=== PATIENT | male | born 1960 | race Caucasian/White ===

== ENCOUNTER → 2021-04-17 11:09 | Outpatient (REF) | payer OTHER, SELFPAY | LOC: ANHLAB 11:09 | PROVIDERS: Visit Provider Nurse Practitioner | DX: D49.2 Neoplasm of unspecified behavior of bone, soft tissue, and skin (principal) | CPT/HCPCS: 88305 ==

== ENCOUNTER → 2021-04-29 16:03 | Outpatient (REF) | payer OTHER, SELFPAY | LOC: ANHLAB 16:03 | PROVIDERS: Visit Provider Nurse Practitioner | DX: L98.9 Disorder of the skin and subcutaneous tissue, unspecified (principal) | CPT/HCPCS: 88305 ==

== ENCOUNTER 2024-04-08 09:17 | Emergency (ER) | payer MEDICARE, SELFPAY ==
[2024-04-08 09:32] VITALS: BP 146/62; PULSE 84; RESP 20; TEMP 36.6; O2SAT 98
--- NOTE | 2024-04-08 09:34 | ED.GENADULT ---
HPI - General Adult General Chief complaint: Skin/Abscess/Foreign Body Stated complaint: stitch swelling and pain Time Seen by Provider: 04/08/24 09:34 Source: patient Mode of arrival: ambulatory Limitations: no limitations History of Present Illness HPI narrative: 63-year-old male patient presents to the [facility] with request for suture removal of the left knee. Patient states this past Wednesday he fell off a ladder and lacerated his left knee. Patient states that they told him that a small artery was nicked and they put in an ex ditch. Patient states the area is sore feels like there is a lot of pressure to the area. Patient states they did update his tetanus shot but did not put him on any antibiotics. Related Data Home Medications Medication Instructions Recorded Confirmed aspirin 81 mg tablet,delayed 81 mg PO DAILY 06/22/19 04/08/24 release glimepiride 4 mg tablet 4 mg PO BID 06/22/19 04/08/24 insulin detemir U-100 100 unit/mL 100 unit subcut DAILY 06/22/19 04/08/24 (3 mL) subcutaneous pen (Levemir FlexTouch U-100 Insulin) losartan 100 1 tablet PO DAILY 06/22/19 04/08/24 mg-hydrochlorothiazide 25 mg tablet (Hyzaar) atorvastatin 40 mg tablet 40 mg PO DAILY 04/08/24 04/08/24 furosemide 20 mg tablet 20 mg PO DAILY 04/08/24 04/08/24 omeprazole 40 mg capsule,delayed 40 mg PO DAILY 04/08/24 04/08/24 release tirzepatide 5 mg/0.5 mL 5 mg subcut WEEKLY 04/08/24 04/08/24 subcutaneous pen injector (Mounjaro) Allergies Allergy/AdvReac Type Severity Reaction Status Date / Time No Known Allergies Allergy Verified 04/08/24 09:29 Review of Systems Review of Systems: CONSTITUTIONAL: Denies fever, chills, or sweats. EYES: Denies visual changes, redness, or discharge. ENT: Denies rhinorrhea, congestion, sore throat, or otalgia. CARDIOVASCULAR: Denies chest pain, palpitations, or edema. RESPIRATORY: Denies cough or dyspnea. GASTROINTESTINAL: Denies abdominal pain, nausea, vomiting, or diarrhea. GENITOURINARY: Denies dysuria or hematuria. SKIN: Denies rash or itching. Positive sutures to left knee MUSCULOSKELETAL: Denies back pain, joint pain, or myalgia. NEUROLOGIC: Denies headache, numbness, or weakness. PSYCHIATRIC: Denies anxiety or depression. [facility] Past Medical History Medical History (Updated 04/08/24 @ 09:54 by MARGE Escobedo) Diabetes Hypercholesteremia Hypertension Social History Social History Tobacco type: cigarettes Alcohol intake: current Alcohol use details: socially Exam Narrative: GENERAL: Well-appearing, well-nourished, and in no acute distress. HEAD: Normocephalic, atraumatic. EYES: PERRLA and EOMI. ENT: Nares clear, no rhinorrhea or epistaxis. Mucous membranes moist. NECK: Supple. No lymphadenopathy CHEST: Clear to auscultation. No respiratory distress. HEART: Regular rate and rhythm. No murmur heard. Normal peripheral pulses. ABDOMEN: Soft, nontender, nondistended, normal active bowel sounds. EXTREMITIES: Normal range of motion. No edema. SKIN: Warm, dry, no rash. patient has what appears to be 3-4 stitches to the left leg distal to the knee. There is some surrounding bruising but no warmth or erythema. There is some swelling present most likely hematoma from the bleeding in the ER a week ago. NEURO: No focal deficits. Alert and oriented x3. Course Course Level of Care: Express Care Visit Vital Signs Vital signs: Vital Signs Temperature 36.6 C 04/08/24 09:32 Pulse Rate 84 04/08/24 09:32 Respiratory Rate 20 04/08/24 09:32 Blood Pressure 146/62 H 04/08/24 09:32 Pulse Oximetry 98 04/08/24 09:32 Oxygen Delivery Room Air 04/08/24 09:32 Temperature 36.6 C 04/08/24 09:32 Pulse Rate 84 04/08/24 09:32 Respiratory Rate 20 04/08/24 09:32 Blood Pressure 146/62 H 04/08/24 09:32 Pulse Oximetry 98 04/08/24 09:32 Oxygen Delivery Room Air 04/08/24
== END 2024-04-08 09:55 | disposition home or self-care (01) ==
PROVIDERS: Emergency Provider Nurse Practitioner Family; PCP Family Medicine
DX: S81.012D Laceration without foreign body, left knee, subsequent encounter (principal); W11.XXXD Fall on and from ladder, subsequent encounter; E11.9 Type 2 diabetes mellitus without complications; Z79.4 Long term (current) use of insulin; E78.00 Pure hypercholesterolemia, unspecified; I10 Essential (primary) hypertension; Z79.82 Long term (current) use of aspirin
CPT/HCPCS: 99211; G0463

== ENCOUNTER 2024-04-10 11:39 | Emergency (ER) | payer MEDICARE, SELFPAY ==
--- NOTE | 2024-04-10 11:46 | ED.GENADULT ---
HPI - General Adult General Chief complaint: Extremity Problem,Nontraumatic Stated complaint: LT Lower Leg pain Time Seen by Provider: 04/10/24 11:56 Source: patient, RN notes reviewed and old records reviewed Mode of arrival: ambulatory Limitations: no limitations History of Present Illness HPI narrative: 63 yo male presents to the [facility] with lower leg. Two days ago had sutures removed Patient states that he was evaluated at [facility] April 02 after falling off a ladder. Sutures were placed in the area just below the knee. Patient was evaluate 6 days later and had the sutures removed. Patient now having some surrounding erythema, swelling, wound opened up. Still with serous sanguinous drainage Patient has been keeping it clean, has a Band-Aid covering it on arrival Patient walks with a normal gait. No posterior calf tenderness. Negative Homans sign Patient does have edema to lower leg Related Data Home Medications Medication Instructions Recorded Confirmed aspirin 81 mg tablet,delayed 81 mg PO DAILY 06/22/19 04/10/24 release glimepiride 4 mg tablet 4 mg PO BID 06/22/19 04/10/24 insulin detemir U-100 100 unit/mL 100 unit subcut DAILY 06/22/19 04/10/24 (3 mL) subcutaneous pen (Levemir FlexTouch U-100 Insulin) losartan 100 1 tablet PO DAILY 06/22/19 04/10/24 mg-hydrochlorothiazide 25 mg tablet (Hyzaar) atorvastatin 40 mg tablet 40 mg PO DAILY 04/08/24 04/10/24 furosemide 20 mg tablet 20 mg PO DAILY 04/08/24 04/10/24 omeprazole 40 mg capsule,delayed 40 mg PO DAILY 04/08/24 04/10/24 release tirzepatide 5 mg/0.5 mL 5 mg subcut WEEKLY 04/08/24 04/10/24 subcutaneous pen injector (Mounjaro) Allergies Allergy/AdvReac Type Severity Reaction Status Date / Time adhesive tape Allergy Rash Verified 04/10/24 11:54 Review of Systems Review of Systems: All systems reviewed & are unremarkable except as noted in HPI and below Constitutional: Constitutional: Reports no additional constitutional complaints Cardiovascular: Cardiovascular: Reports no additional cardiovascular complaints, Denies chest pain and Denies dyspnea Respiratory: Respiratory: Reports no additional respiratory complaints, Denies chest congestion, Denies cough and Denies dyspnea Gastrointestinal: Gastrointestinal: Reports no additional gastrointestinal complaints, Denies abdominal pain, Denies nausea and Denies vomiting Musculoskeletal: Musculoskeletal: Reports as per HPI Integumentary/Breasts: Skin/Breast: Reports as per HPI Neurologic: Reports system reviewed and no additional complaints, except as documented Psychiatric: Psychiatric: Reports no additional psychiatric complaints Allergic/Immunologic: Allergic/Immunologic: Reports no additional allergic/immunologic complaints PMFSH Past Medical History Medical History Diabetes Hypercholesteremia Hypertension Social History Social History Tobacco type: cigarettes Alcohol intake: current Alcohol use details: socially Comments At the time of my signature, I reviewed and agree with the nursing past medical, surgical, social, and family history. There is no relevant family history pertinent to the patient complaint. Exam Const: General: cooperative, healthy appearing, comfortable, no acute distress, well developed, alert and well nourished Nutritional Appearance: well nourished Orientation/consciousness: patient oriented x3 Limitations: no limitations HENMT: Head: normal to inspection Ears: hearing grossly normal bilaterally and external ears normal Face/Nose/Sinus: Normal external nose present, Normal nares present, Normal nasal mucous membranes and turbinates present, normal facial exam and face symmetric Face and sinus: normal facial exam and face symmetric Eyes: General: appearance normal, both eyes and all related structures Alignmen
[2024-04-10 11:53] VITALS: BP 144/75; PULSE 73; RESP 16; TEMP 36.6; O2SAT 98
[2024-04-10 11:54] VITALS: BP 144/75; PULSE 73; RESP 16; TEMP 36.6; O2SAT 98
== END 2024-04-10 12:25 | disposition home or self-care (01) ==
PROVIDERS: Emergency Provider Nurse Practitioner; PCP Family Medicine
DX: T81.33XA Disruption of traumatic injury wound repair, initial encounter (principal); T81.41XA Infection following a procedure, superficial incisional surgical site, initial encounter; L03.116 Cellulitis of left lower limb; E11.9 Type 2 diabetes mellitus without complications; E78.00 Pure hypercholesterolemia, unspecified; I10 Essential (primary) hypertension; Z72.0 Tobacco use; Z79.82 Long term (current) use of aspirin
CPT/HCPCS: 99213; G0463